=== PATIENT | female | born 1950 | race Caucasian/White ===

== ENCOUNTER 2018-07-09 05:58 | Inpatient (IN) | payer MEDICARE, OTHER ==
[2018-07-08 10:34] LABS: BASOPHILS # (AUTO) 0.1 (0.0-0.1); BASOPHILS % 0.7 % (0.0-1.0); EOSINOPHILS # (AUTO) 0.2 (0.0-0.4); EOSINOPHILS % 1.7 % (0.0-6.0); HEMATOCRIT 43.2 % (34.2-44.1); HEMOGLOBIN 14.7 g/dL (12.0-16.0); LYMPHOCYTES # (AUTO) 1.7 (1.0-3.2); LYMPHOCYTES % 18.4 % (18.0-39.1); MEAN CORPUSCULAR HEMOGLOBIN 30.8 pg (28-32); MEAN CORPUSCULAR VOLUME 90.4 fL (81-99); MONOCYTES # (AUTO) 0.7 (0.2-0.8); MONOCYTES % 7.1 % (4.4-11.3); NEUTROPHILS # (AUTO) 6.7 (2.1-6.9); NEUTROPHILS % 71.6 % (38.7-80.0); PLATELET COUNT 274 x10e3/uL (140-360); RED BLOOD COUNT 4.78 x10e6/uL (3.6-5.1); RED CELL DISTRIBUTION WIDTH 13.2 % (11.7-14.4)
--- NOTE | 2018-07-08 11:12 | Diagnostic Imaging Report ---
EXAMINATION: CHEST 2 VIEWS INDICATION: Pre-op. COMPARISON: None FINDINGS: TUBES and LINES: None. LUNGS: Lungs are well inflated. There is no evidence of pneumonia or pulmonary edema. Mild patchy bibasilar opacities, likely atelectasis. PLEURA: No pleural effusion or pneumothorax. HEART AND MEDIASTINUM: The cardiomediastinal silhouette is unremarkable. There are atherosclerotic calcifications within the aorta. BONES AND SOFT TISSUES: No acute osseous abnormality. UPPER ABDOMEN: No free air under the diaphragm. IMPRESSION: No acute radiographic abnormality. Signed by: Dr. Inderjit Cueto MD on 07/08/2018 11:09 AM
[~2018-07-09] VITALS: Ht 167.6 cm; Wt 74.4 kg
[~2018-07-09 05:58] MED LIST: CLOPIDOGREL75 MG PO; ETODOLAC400 M1 PO; LIPITOR20 MG PO; NEXIUM40 MG PO; RAMIPRIL5 MG PO; VALTREX500 MG PO
--- OUTSIDE RECORDS SUMMARY | 2018-07-09 06:00 | XMS REPORT ---
Author Author [facility] Address Unknown Phone Unavailable Care Team Providers Care Call Center Support Representative Name Role Phone MARISELA MILIAN Unavailable Unavailable Problems This patient has no known problems. Allergies, Adverse Reactions, Alerts This patient has no known allergies or adverse reactions. Medications This patient has no known medications. Results Test Description Test Time Test Comments Text Results Atomic Results Result Comments CHEST 2 VIEWS 2018-07-08 11:04:00 [place] [address] Patient Name: CARMEN GAYTAN MR #: [id number] : 1950 Age/Sex: 67/F Req #: [id number] Adm Physician: Ordered by: MARISELA MILIAN MD Report #: [id number] Location: OR Room/Bed: Procedure: [id number] DX/CHEST 2 VIEWS Exam Date: 07/08/18 Exam Time: 1022 REPORT STATUS: Signed EXAMINATION: CHEST 2 VIEWS INDICATION: Pre-op. COMPARISON: None FINDINGS: TUBES and LINES: None. LUNGS: Lungs are well inflated. There is no evidence of pneumonia or pulmonary edema. Mild patchy bibasilar opacities, likely atelectasis. PLEURA: No pleural effusion or pneumothorax. HEART AND MEDIASTINUM: The cardiomediastinal silhouette is unremarkable. There are atherosclerotic calcifications within the aorta. BONES AND SOFT TISSUES: No acute osseous abnormality. UPPER ABDOMEN: No free air under the diaphragm. IMPRESSION: No acute radiographic abnormality. Signed by: Dr. Mina gil MD on 07/08/2018 11:09 AM Dictated By: MINA MONTES MD 110 Transcribed By: FILEMON on 07/08/181108 COPY TO: MARISELA MILIAN MD
[2018-07-09] MEDS ORDERED: ROPIVACAINE 246.25 MG, EPINEPHRINE HCL 1:1000 1ML 0.5 MG, CLONIDINE HCL 0.08 MG, KETORO... INJ ONE ×5 (06:30)
[2018-07-09] MEDS ORDERED: BUPIVACAINE 7.5MG/ML /DEXTROSE 82.5MG/ML 2 ML AMP INJ ONE (06:32)
[2018-07-09] MEDS ORDERED: CEFAZOLIN SOD 2 GM/D5W 50ML 50 ML IV ONE (06:33)
[2018-07-09] MEDS ORDERED: GABAPENTIN 300 MG CAP ONE (06:33)
[2018-07-09] MEDS ORDERED: CELECOXIB 200 MG CAP ONE (06:33)
[2018-07-09] MEDS ORDERED: DEXAMETHASONE SOD PHOS 10 MG/1 ML VIAL ONE (06:33)
[2018-07-09] MEDS ORDERED: VANCOMYCIN HCL 1,000 MG ONE (06:50)
[2018-07-09] MEDS ORDERED: TRANEXAMIC ACID 1,000 MG/10 ML ML ONE (06:53)
[2018-07-09] MEDS ORDERED: SODIUM CHLORIDE 0.9% 500ML 500 ML ONE (06:53)
[2018-07-09] MEDS ORDERED: BACITRACIN 50,000 UNIT VIAL ONE (06:54)
[2018-07-09] MEDS ORDERED: MORPHINE SULFATE/PF 1 MG/1 ML 10ML VIAL ONE (07:42)
[2018-07-09] MEDS ORDERED: ZOLPIDEM TARTRATE 5 MG TAB PO PRN (09:15)
[2018-07-09] MEDS ORDERED: DIPHENHYDRAMINE HCL INJ 50 MG/ML VIAL IM/IV PRN (09:15)
[2018-07-09] MEDS ORDERED: ONDANSETRON HCL INJ 2MG/ML 2ML 2 MG/ML VIAL IV PRN (09:15)
[2018-07-09] MEDS ORDERED: ACETAMINOPHEN 650 MG SUPP PR PRN (09:15)
[2018-07-09] MEDS ORDERED: MEPERIDINE HCL INJ 25 MG/ML VIAL ONE (09:15)
[2018-07-09] MEDS ORDERED: DOCUSATE SODIUM 100 MG CAP PO PRN (09:15)
[2018-07-09] MEDS ORDERED: PROMETHAZINE HCL (IM) 25 MG/ML VIAL INJ PRN (09:15)
[2018-07-09] MEDS ORDERED: HYDROCODONE/APAP 5MG-325MG TAB PO PRN (09:15)
[2018-07-09] MEDS ORDERED: KETOROLAC TROMETHAMINE 30 MG/ML VIAL IV PRN ×2 (09:15→13:45)
--- NOTE | 2018-07-09 10:10 | Diagnostic Imaging Report ---
AP radiograph of the pelvis-1 view History: Postoperative. Findings: The upper pelvis is excluded from the [id number]. There are postsurgical changes status post left total hip arthroplasty. Hardware appears intact. There is soft tissue air and overlying skin armaan, consistent with recent surgery. No evidence of acute fracture or malalignment. IMPRESSION: Immediate postoperative changes status post left total hip arthroplasty as above with anatomic alignment. Signed by: Dr. Inderjit Cueto MD on 07/09/2018 10:07 AM
--- NOTE | 2018-07-09 13:07 | NUR ---
Received patient via stretcher from PACU. AAOX4 to time, person, place, situation. Respirations even and unlabored. Dressing to left hip clean, dry, and intact. Abductor pillow in place. Oriented patient to room. Instructed patient to use call light for assistance. Voiced understanding.
[2018-07-09 13:10] VITALS: BP 108/77
[2018-07-09] MEDS ORDERED: ETODOLAC200 MG PO (13:41)
[2018-07-09] MEDS: SODIUM CHLORIDE 0.9% 1000ML 1,000 ML IV SCH (14:00)
[2018-07-09] MEDS: ACETAMINOPHEN 1000 MG/100 ML IV SCH ×2 (14:00→17:47)
[2018-07-09] MEDS: CEFAZOLIN SOD 1 GM/NS 50ML 50 ML IV SCH ×2 (14:30→21:18)
[2018-07-09] MEDS ORDERED: PANTOPRAZOLE SOD 40 MG TABEC PO PRN (15:00)
--- NOTE | 2018-07-09 15:33 | Operative Report ---
DATE OF PROCEDURE: 07/09/2018 SURGEON: Talon Paris MD HEALTH POLICY MANAGER: Philippe Barillas, certified PA. PREOPERATIVE DIAGNOSIS: Osteoarthritis, left hip. POSTOPERATIVE DIAGNOSIS: Osteoarthritis, left hip. PROCEDURE: Left total hip arthroplasty. INDICATIONS: The patient is a 67-year-old lady, who has end-stage arthritis of her left hip. She has failed conservative management and would like to proceed with left total hip replacement. The risks and benefits of the procedure have been discussed. She states she understands and wishes to proceed. DESCRIPTION OF PROCEDURE: The patient was brought to the operating room and placed under spinal anesthetic. She received prophylactic antibiotics and tranexamic acid in the holding area. She was positioned in the right lateral decubitus position. Her left hip was prepped and draped in a sterile manner. A preoperative time-out was performed. A posterior approach with a limited incision was made to the left hip. Care was taken to avoid injury to the sciatic nerve. Hemostasis was obtained with electrocautery. A Charnley self-retaining retractor was placed. The posterior capsule was released along with some of the short external rotators. The hip was dislocated and an oscillating saw was used to resect the femoral head. Complete loss of articular cartilage and large marginal osteophytes were noted. Acetabular retractors were placed. The labral remnants were removed. The true floor of the acetabulum was established with a 46 mm reamer. The socket was then sequentially reamed up to 53 mm. This accomplished bleeding hemispherical cancellous bone. Two subchondral cysts in the dome of the acetabulum were debrided with a curved curette and then packed with autologous bone graft taken from the femoral head. A [employer] 54 mm outer diameter OsseoTi socket was then impacted into place. The hip had been thoroughly irrigated on a number of occasions with a shower tip pulsatile lavage. Throughout the case, we also used a diluted mixture of polymyxin and vancomycin spray. The socket was noted to have good fixation. Fixation was augmented with a single 25 mm cancellous screw placed into the ilium. A highly cross-linked polyethylene liner with a 36 mm inner diameter in posterior elevation was then seated. A portion of a 100 mL premixed pericapsular injection was placed into the surrounding soft tissue of the socket. Attention was then directed towards the proximal femur. A box cutting osteotome and taper pin reamer were used to establish entry to the femoral canal. The [employer] Taperloc broaches were impacted into place. A #13 stem had good canal fill and stability for trial reductions. A standard 36 mm head was trialed. This was put through a full arc of motion and noted to have good stability and mu-ism of limb length. Due to her previous contracture, she was somewhat tight in full extension. The trial implants were removed. The hip was further irrigated with a shower tip pulsatile lavage, polymyxin and vancomycin spray. The implants were seated and the femoral head was placed onto the stem. Care was taken to make sure that the stem was clean and dry prior to seating the femoral head. A final reduction was performed. The posterior capsule was repaired with interrupted #2 Ethibond. The wound was further irrigated with a shower tip pulsatile lavage and then 500 mg of vancomycin powder was sprinkled into the wound. The iliotibial band and gluteal fascia were closed with interrupted #2 Ethibond. The skin was closed with subcuticular Vicryl and armaan. A sterile Aquacel bandage was applied. The patient was returned to the supine position and transported to the recovery room in stable condition. Estimated blood loss was 75 mL. At the end of the procedure, all needle and sponge counts were correct. Talon Paris MD DR/VERNELL /[id number]
--- NOTE | 2018-07-09 15:52 | Diagnostic Imaging Report ---
EXAMINATION: CHEST SINGLE (PORTABLE) INDICATION: Postoperative. COMPARISON: Chest radiograph 07/08/2018. FINDINGS: TUBES and LINES: None. LUNGS: Lungs are moderately inflated. Lungs are clear. There is no evidence of pneumonia or pulmonary edema. PLEURA: No pleural effusion or pneumothorax. HEART AND MEDIASTINUM: The cardiomediastinal silhouette is unremarkable. There are atherosclerotic calcifications within the aorta. BONES AND SOFT TISSUES: No acute osseous abnormality. UPPER ABDOMEN: No free air under the diaphragm. IMPRESSION: No acute radiographic abnormality. Signed by: Dr. Inderjit Cueto MD on 07/09/2018 3:49 PM
[2018-07-09] MEDS ORDERED: INFLUENZA VIRUS VAC SPLIT INJ 0.5 ML SYR IM NR (16:00)
[2018-07-09 16:35] VITALS: BP 99/54
[2018-07-09] MEDS: CELECOXIB 100 MG CAP PO SCH (16:38)
[2018-07-09] MEDS: ASPIRIN 325 MG TAB PO SCH (16:38)
--- NOTE | 2018-07-09 19:00 | NUR ---
Report given to oncoming nurse of patient's status. No s/s of acute distress noted.
[2018-07-09] MEDS ORDERED: PROPOFOL IV EMULSION 10 MG/ML 20 ML VIAL ONE (19:05)
[2018-07-09] MEDS ORDERED: MIDAZOLAM HCL 2 MG/2 ML VIAL ONE (19:05)
[2018-07-09] MEDS ORDERED: FENTANYL CITRATE/PF 100MCG/2 ML INJ ONE (19:05)
[2018-07-09] MEDS ORDERED: PHENYLEPHRINE HCL 1% 10 MG/ML VIAL ONE (19:05)
[2018-07-09] MEDS ORDERED: LIDOCAINE HCL 2% LOCAL INJ 5 ML SDV VIAL INJ ONE (19:05)
[2018-07-09 20:00] VITALS: BP 107/73
[2018-07-09] MEDS ORDERED: ATORVASTATIN 40 MG TAB PO SCH (21:00)
[2018-07-10] VITALS: BP 105/76
[2018-07-10] MEDS: SODIUM CHLORIDE 0.9% 1000ML 1,000 ML IV SCH ×2 (00:15→04:55)
--- NOTE | 2018-07-10 00:15 | Consultation ---
DATE OF CONSULTATION: 07/09/2018 Medicine Consult REASON FOR CONSULTATION: Medical management. HISTORY OF PRESENT ILLNESS: This is a 67-year-old white woman, who has a history of advanced left hip degenerative joint disease. The patient has long-term history of tobacco abuse, hypertension, and hyperlipidemia. Today, the patient underwent successful left total hip arthroplasty that was performed by Dr. Paris. The patient states she has been tobacco free for the last three weeks though. The patient states her pain is very well controlled at this time. REVIEW OF SYSTEMS: GENERAL: Weight is stable. No fever or chills. HEENT: No headaches. No vision changes. CARDIOVASCULAR: No chest pain. The patient denies any chronic cough. GI: No nausea, vomiting, or constipation. : No dysuria, hematuria, or constipation. Denies any overactive bladder. NEUROMUSCULAR: Complains of severe pain in her lower back from multilevel disk disease. At this time, she is pain free. ALLERGIES: NO KNOWN DRUG ALLERGIES. MEDICATIONS: 1. Atorvastatin 80 mg at bedtime. 2. Clopidogrel 75 mg daily. 3. Nexium 40 mg daily. 4. Etodolac daily as needed for arthritic pain. 5. Ramipril 10 mg daily. PAST MEDICAL HISTORY: 1. Hypertensive heart disease. 2. Hyperlipidemia. 3. Tobacco abuse. 4. Left hip degenerative joint disease. 5. Multilevel lumbar disease. FAMILY HISTORY: Noncontributory. SOCIAL HISTORY: This woman is , lives with . 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 PAST SURGICAL HISTORY: 1. Total abdominal hysterectomy with bilateral salpingo-oophorectomy. 2. Left total knee replacement. 3. Left carotid endarterectomy. 4. Appendectomy. PHYSICAL EXAMINATION: GENERAL: She is awake, alert, and fluent in no distress, very pleasant. VITAL SIGNS: Height 5 feet 6 inches, weight 164 pounds, BMI is 27, blood pressure is 100/40, pulse 82, respiratory rate 18, oxygen saturation 95% on room air, temperature is 97.0. INTEGUMENT: Skin is warm and dry. No pallor, jaundice, or diaphoresis. HEENT: Anicteric sclerae. Moist mucous membranes. NECK: Supple. CARDIOVASCULAR: Distant heart sounds. Regular rate and rhythm. LUNGS: No rales. No rhonchi or wheezing. ABDOMEN: Benign. EXTREMITIES: The patient has arthritic joint deformities in her hands. No edema in legs. The left hip incision is clean, dry, and intact. NEUROLOGIC: Intact. DIAGNOSES: 1. Status post left total hip replacement. 2. Tobacco use. 3. Hypertensive heart disease. 4. Hyperlipidemia. PLAN: 1. Pain control. 2. Mobilize with therapy. 3. Recommend the patient for wellness, quit smoking tobacco. 4. Recommend the patient to use incentive spirometer to prevent atelectasis. 5. We will proceed with high dose oral aspirin twice a day as directed by orthopedics for deep venous thrombosis prophylaxis. 6. Resume home medications. I would like to thank, Dr. Paris for this generous consult. MD SHAWN Branch/VERNELL /[id number] MTDD
[2018-07-10] MEDS: ACETAMINOPHEN 1000 MG/100 ML IV SCH ×2 (00:28→04:55)
[2018-07-10 04:00] VITALS: BP 113/74
[2018-07-10] MEDS: HYDROCODONE/APAP 7.5MG-325MG 1 EA TAB PO PRN ×2 (04:45→09:03)
[2018-07-10] MEDS: CEFAZOLIN SOD 1 GM/NS 50ML 50 ML IV SCH (06:01)
[2018-07-10 06:46] LABS: BASOPHILS % 0.1 % (0.0-1.0); EOSINOPHILS % 0.2 % (0.0-6.0); HEMATOCRIT 31.4 % (34.2-44.1); HEMOGLOBIN 10.5 g/dL (12.0-16.0); LYMPHOCYTES # (AUTO) 1.2 (1.0-3.2); LYMPHOCYTES % 13.8 % (18.0-39.1); MEAN CORPUSCULAR HEMOGLOBIN 30.8 pg (28-32); MEAN CORPUSCULAR HGB CONC 33.4 g/dL (31-35); MEAN CORPUSCULAR VOLUME 92.1 fL (81-99); MONOCYTES # (AUTO) 0.7 (0.2-0.8); MONOCYTES % 8.4 % (4.4-11.3); NEUTROPHILS # (AUTO) 6.5 (2.1-6.9); PLATELET COUNT 193 x10e3/uL (140-360); RED BLOOD COUNT 3.41 x10e6/uL (3.6-5.1); RED CELL DISTRIBUTION WIDTH 13.3 % (11.7-14.4)
[2018-07-10 07:10] LABS: ALANINE AMINOTRANSFERASE 15 IU/L (0-55); ALBUMIN 3.2 g/dL (3.5-5.0); ALBUMIN/GLOBULIN RATIO 1.1 (0.8-2.0); ALKALINE PHOSPHATASE 56 IU/L (40-150); BLOOD UREA NITROGEN 11 mg/dL (7-26); BUN/CREATININE RATIO 17 (6-25); CALCIUM 8.7 mg/dL (8.4-10.2); CARBON DIOXIDE 26 mmol/L (22-29); CHLORIDE 102 mmol/L (98-107); CREATININE, SERUM 0.66 mg/dL (0.57-1.11); EST GLOMERULAR FILTRATION RATE > 60 ML/MIN (60-); GLUCOSE 123 mg/dL (74-118); SODIUM 136 mmol/L (136-145)
--- NOTE | 2018-07-10 07:25 | NUR ---
Received patient in report this morning. Patient ambulated with walker to restroom. Instructed patient to sit in chair at bedside for breakfast, and explained the recliner is too low for her hip. Patient verbalized understanding.
[2018-07-10 08:03] VITALS: BP 86/52
[2018-07-10] MEDS ORDERED: IBUPROFEN 400 MG TAB PO SCH (09:00)
[2018-07-10] MEDS ORDERED: CLOPIDOGREL BISULFATE 75 MG TAB PO SCH (09:00)
[2018-07-10] MEDS ORDERED: RAMIPRIL 5 MG CAP PO SCH (09:00)
[2018-07-10] MEDS ORDERED: ATORVASTATIN 20 MG TAB PO SCH (09:00)
--- NOTE | 2018-07-10 09:00 | NUR ---
Patient A&Ox3. Lungs clear. Bowel sounds active. Skin intact. Pain 7/10, patient reports it is worse after ambulating. Foot pumps on. Blood pressure 86/52 at shift change, patient reported feeling no symptoms. Manually checked: 92/70. Held blood pressure medicine. Mild itchiness reported, gave benadryl. Will continue to monitor.
[2018-07-10] MEDS: CELECOXIB 100 MG CAP PO SCH (09:02)
[2018-07-10] MEDS: ASPIRIN 325 MG TAB PO SCH (09:02)
[2018-07-10] MEDS ORDERED: ACETAMINOPHEN 1000 MG/100 ML IV PRN (09:15)
[2018-07-10 11:01] VITALS: BP 86/52
[2018-07-10] MEDS ORDERED: NORCO 7.5-3251 EACH PO (11:01)
[2018-07-10] MEDS ORDERED: ASPIRIN325 MG PO (11:01)
[2018-07-10 12:11] VITALS: BP 123/73
--- NOTE | 2018-07-10 12:11 | NUR ---
CASE MANAGEMENT ASSESSMENT Lap Layer to bedside to discuss plan of care with patient/family. CM/SW role and care transitions discussed. Anticipated discharge plan discussed along with duration of care. CM/SW discussed patients right to make decisions in care. CM/SW work hours given. Patient lives: with Esteban Admit/Transfer: thru PACU Hospital/ER visits since last admit: 0 POA/Emergency contact: Esteban Brower [phone] Current/Previous Home Health: none previously. PCP/Follow-up Care: Will follow up with Dr. Paris as instructed Current/Previous DME: LUIS currie, brace, ice pack has been delivered Medications (referring to index hospitalization or the first time you were in the hospital) a. Were changes made in your medications when you were in the hospital on [date of index hospitalization]? n/a b. Did you understand the changes? n/a c. Were you able to obtain your new medications right away? n/a d. Were you able to take your medications like the doctor wanted you to? n/a e. Did the hospital give you an accurate, easy to understand list of medications when you left? n/a Scale of 1-10 how comfortable does patient feel with disease management in outpatient settin Other Services: none Employment Status: employed with [employer] Areas of Concerns: post op Referral Needs: home health. Referral was sent to [facility] by Dr. Paris's office. Choice letter signed and placed in chart. Copy to pt. Cm called and spoke to Abena at [facility]. She stated that they will be able to see pt tomorrow. Home health information printed and given to pt. / . Operative note and PT note faxed to home health. Education Needs: post operative instructions IMM/BRICE given and signed (if applicable): IMM explained to pt. She verbalized understanding. Signed copy placed in chart. Copy to pt. Goal for discharge: Home with home health CM/SW left business card at the bedside with contact information. Name and number was also written on the patients whiteboard. Patient verbalized understanding of discussion. CM will follow-up with ongoing discharge and transition of care needs.
[2018-07-10] MEDS ORDERED: ONDANSETRON HCL 4 MG ORAL DISINTEGRATING TAB PO PRN (12:15)
--- NOTE | 2018-07-10 12:55 | NUR ---
R FA 20g IV removed at this time. Catheter tip intact. Pressure dressing applied.
--- NOTE | 2018-07-10 13:03 | NUR ---
Patient discharged at this time. Assisted via wheelchair by staff to private auto. Discharge instructions given. Follow up in 1-2 weeks. Take aspirin BID for 2-3 days. Hold ramipril til Sunday and monitor blood pressure. Hip precautions reiterated. Continue home meds.
== END 2018-07-10 13:04 | disposition home health service (06) | DRG 470 ==
LOC: OR 05:58 → PACU V 09:04 → MED/SURG 13:22
PROVIDERS: ADMIT Specialist; ATTEND Specialist
PROC: 0SRB0JZ Replacement of Left Hip Joint with Synthetic Substitute, Open Approach (ICD-10-PCS; principal; 2018-07-09 08:00)
DX: M16.12 Unilateral primary osteoarthritis, left hip (principal); I11.9 Hypertensive heart disease without heart failure; E78.5 Hyperlipidemia, unspecified; Z87.891 Personal history of nicotine dependence; M51.36 Other intervertebral disc degeneration, lumbar region; Z79.02 Long term (current) use of antithrombotics/antiplatelets; Z79.82 Long term (current) use of aspirin
CPT/HCPCS: 36415; 71045; 71046; 72170; 80053; 82948; 85025; 86850; 86900; 86920; 93005; J0171; J0690; J1100; J1200; J1885; J2001; J2175; J2250; J2370; J2795; J3370; J7030; J7040